=== PATIENT | male | born 1960 | race Caucasian/White ===

== ENCOUNTER 2020-02-16 05:00 | Emergency (ER) | payer MEDICAID ==
[~2020-02-16] VITALS: Ht 177.8 cm; Wt 101.1 kg
[~2020-02-16 05:00] MED LIST: AMIT25TA10 PO; BUTCHERS BROOM; CAYE450C; ECHI350C PO; ELDE118L; GABA-532 PO; LEVO50TA8 PO; NAPR-996 PO
[2020-02-16] MEDS ORDERED: diazepam 5mg tablet PO ONE (05:15)
[2020-02-16] MEDS ORDERED: aspirin 81mg tab.chew PO ONE (05:15)
[2020-02-16 05:22] LABS: BASOPHILS % (AUTO) 0.5 % (0-1); EOSINOPHILS # (AUTO) 0.1 X10'3 (0-0.9); EOSINOPHILS % (AUTO) 0.6 % (0-6); HEMATOCRIT 46.9 % (42.0-52.0); HEMOGLOBIN 16.2 g/dl (14.0-17.9); LYMPHOCYTES # (AUTO) 1.2 X10'3 (1.1-4.8); LYMPHOCYTES % (AUTO) 13.6 % (21-51); MEAN CORPUSCULAR HEMOGLOBIN 33.5 PG (27.0-31.0); MEAN CORPUSCULAR HGB CONC 34.6 g/dL (33.0-36.5); MEAN CORPUSCULAR VOLUME 96.9 FL (78-98); MEAN PLATELET VOLUME 9.6 FL (7.4-10.4); MONOCYTES # (AUTO) 0.6 X10'3 (0-0.9); MONOCYTES % (AUTO) 6.4 % (2-12); NEUTROPHILS # (AUTO) 7.1 X10'3 (1.8-7.7); NEUTROPHILS % (AUTO) 78.9 % (42-75); PLATELET COUNT 182 X10'3 (140-440); RED BLOOD COUNT 4.84 X10'6 (4.70-6.10); WHITE BLOOD COUNT 9.1 X10'3 (4.5-11.0)
[2020-02-16 05:38] LABS: ALBUMIN 4.3 G/DL (3.4-5.0); ANION GAP 13 (8-16); BLOOD UREA NITROGEN 9 MG/DL (7-18); BUN/CREATININE RATIO 9.5 (5.4-32.0); CALCIUM 9.3 MG/DL (8.5-10.1); CHLORIDE 100 MMOL/L (99-107); CREATININE 0.95 MG/DL (0.60-1.10); GLUCOSE 117 MG/DL (70-104); POTASSIUM 3.3 MMOL/L (3.5-5.1); SODIUM 139 MMOL/L (135-145); TOTAL CARBON DIOXIDE 26.4 MMOL/L (24-32); TROPONIN I < 0.04 NG/ML (0.0-0.05); eGFR 81 ML/MIN
[2020-02-16] MEDS ORDERED: acetaminophen 325mg tablet PO ONE (05:55)
--- NOTE | 2020-02-16 05:58 | NUR ---
Dr Farah at bedside examining pt. blood pressure s Addendum: 02/16/20 at 0559 by JANIS bp 172/114 HR 89
[2020-02-16 10:01] VITALS: BP 145/99
== END 2020-02-16 10:03 | disposition home or self-care (01) ==
LOC: ER 05:01
DX: R07.89 Other chest pain (principal); R00.0 Tachycardia, unspecified; R50.9 Fever, unspecified; R05 Cough; R06.02 Shortness of breath; Z20.828 Contact with and (suspected) exposure to other viral communicable diseases; Z79.899 Other long term (current) drug therapy
CPT/HCPCS: 36415; 71045; 80048; 84484; 85025; 87635; 93005; 99285

== ENCOUNTER 2021-08-27 00:53 | Emergency (ER) | payer MEDICAID ==
[~2021-08-27] VITALS: Ht 180.3 cm; Wt 100.0 kg
[2021-08-27 04:47] LABS: ALANINE AMINOTRANSFERASE 25 U/L (12-78); ALBUMIN 4.4 G/DL (3.4-5.0); ALBUMIN/GLOBULIN RATIO 1.2 (1.1-1.5); ALKALINE PHOSPHATASE 71 IU/L (46-116); ANION GAP 13 (8-16); ASPARTATE AMINO TRANSFERASE 33 U/L (10-37); BILIRUBIN,TOTAL 1.2 MG/DL (0.1-1.0); BLOOD UREA NITROGEN 6 MG/DL (7-18); BUN/CREATININE RATIO 6.6 (5.4-32.0); CALCIUM 9.4 MG/DL (8.5-10.1); CHLORIDE 101 MMOL/L (99-107); CREATININE 0.91 MG/DL (0.60-1.10); GLUCOSE 120 MG/DL (70-104); POTASSIUM 3.6 MMOL/L (3.5-5.1); SODIUM 138 MMOL/L (135-145); TOTAL CARBON DIOXIDE 23.8 MMOL/L (24-32); TOTAL PROTEIN 8.2 G/DL (6.4-8.2); eGFR 85 ML/MIN
[2021-08-27 04:55] LABS: BASOPHILS # (AUTO) 0.1 X10'3 (0-0.2); BASOPHILS % (AUTO) 0.7 % (0-1); EOSINOPHILS % (AUTO) 0.6 % (0-6); HEMATOCRIT 52.8 % (42.0-52.0); LYMPHOCYTES # (AUTO) 1.6 X10'3 (1.1-4.8); LYMPHOCYTES % (AUTO) 19.7 % (21-51); MEAN CORPUSCULAR HEMOGLOBIN 30.8 PG (27.0-31.0); MEAN CORPUSCULAR HGB CONC 34.1 g/dL (33.0-36.5); MEAN CORPUSCULAR VOLUME 90.4 FL (78-98); MEAN PLATELET VOLUME 9.7 FL (7.4-10.4); MONOCYTES # (AUTO) 0.8 X10'3 (0-0.9); MONOCYTES % (AUTO) 10.5 % (2-12); NEUTROPHILS # (AUTO) 5.4 X10'3 (1.8-7.7); NEUTROPHILS % (AUTO) 68.5 % (42-75); PLATELET COUNT 200 X10'3 (140-440); RED BLOOD COUNT 5.84 X10'6 (4.70-6.10); RED CELL DISTRIBUTION WIDTH 14.4 % (11.5-14.5); WHITE BLOOD COUNT 7.9 X10'3 (4.5-11.0)
--- NOTE | 2021-08-27 05:26 | NUR ---
PT CHEST RISE AND FALL OBSERVED. BREATHING UNLABORED. PT RESTING QUIETLY IN BED.
[2021-08-27 05:38] VITALS: BP 166/101
[2021-08-27] MEDS ORDERED: DIPH-186 PO (05:38)
[2021-08-27] MEDS ORDERED: ONDA4TAB12 PO (05:38)
== END 2021-08-27 06:26 | disposition home or self-care (01) ==
LOC: ER 00:54
DX: R53.1 Weakness (principal); Z20.822 Contact with and (suspected) exposure to COVID-19; R19.7 Diarrhea, unspecified; R05.9 Cough, unspecified; R43.8 Other disturbances of smell and taste; R06.02 Shortness of breath; R07.89 Other chest pain; R11.0 Nausea; E86.0 Dehydration; I10 Essential (primary) hypertension; F32.A Depression, unspecified; Z98.890 Other specified postprocedural states; Z72.89 Other problems related to lifestyle; Z79.899 Other long term (current) drug therapy
CPT/HCPCS: 36415; 71045; 80053; 84484; 85025; 87502; 87503; 87635; 93005; 99285; C9803